=== PATIENT | female | born 1975 | race Caucasian/White ===

== ENCOUNTER 2017-05-28 20:44 | Emergency (ER) | payer MEDICAID ==
[2017-05-28] MEDS ORDERED: ONDANSETRON HCL/PF 2 MG/ML VIAL IV ONE (21:28)
[2017-05-28] MEDS ORDERED: ONDANSETRON HCL/PF 2 MG/ML VIAL ONE (21:37)
[2017-05-28] MEDS ORDERED: DIATRIZOATE MEGLUMINE, SODIUM 30 ML BTL ONE (21:37)
[2017-05-28 21:38] LABS: Hematocrit 40.2 % (37.0-47.0); Hemoglobin 13.7 gm/dL (12.5-16.0); Mean Cell Volume 86.8 fl (78-100); Mean Corpuscular Hemoglobin 29.6 pg (27-31); Mean Corpuscular Hgb Conc 34.1 g/dl (32-36); Mean Platelet Volume 10.9 fl (6.0-9.5); Neutrophil # 4.2 K/mm3 (1.3-6.0); Neutrophil % 54.6 % (42-75.0); Platelet Count 226 K/mm3 (150-450); Red Blood Count 4.63 M/mm3 (4.2-5.4); Red Cell Distribution Width 11.8 % (11.5-14.0); White Blood Count 7.6 K/mm3 (4.0-10.5)
[2017-05-28] MEDS ORDERED: DIATRIZOATE MEGLUMINE, SODIUM 30 ML BTL PO ONE (21:38)
[2017-05-28 21:57] LABS: Albumin * 3.7 gm/dl (3.4-5.0); Anion Gap 13.4 mmol/L (6.8-13.8); BUN/Creatinine Ratio 21.1 (9.0-21.6); Bilirubin, Total 0.4 mg/dL (0.0-1.1); Ca. Corrected For Albumin 9.2 mg/dL (8.4-10.2); Calcium * 9.3 mg/dL (7.9-10.9); Carbon Dioxide 28.4 mmol/L (24-32.6); Potassium 3.8 mmol/L (3.4-4.6); Total Protein 7.1 gm/dL (6.2-8.2)
[2017-05-28 22:21] LABS: Urine Bilirubin Negative (NEGATIVE); Urine Blood Negative /ul (NEGATIVE); Urine Ketone Negative (NEGATIVE); Urine Nitrite Negative (NEGATIVE); Urine Protein Negative (NEGATIVE); Urine Specific Gravity 1.025 SP.GR. (1.005-1.010); Urine Urobilinogen Normal (NORMAL)
[2017-05-28 22:31] LABS: Urine Appearance Clear; Urine Bacteria None Seen; Urine Color Yellow; Urine RBC None Seen /hpf (0-5); Urine WBC None Seen /hpf (0-5)
[2017-05-28 22:32] LABS: Urine Yeast Few - 1+
[2017-05-28] MEDS ORDERED: KETOROLAC TROMETHAMINE 30 MG/ML VIAL IV ONE (23:53)
[2017-05-28] MEDS ORDERED: KETOROLAC TROMETHAMINE 30 MG/ML VIAL ONE (23:54)
[2017-05-29] MEDS ORDERED: LORazepam 2 MG/ML DISP.SYRIN IV ONE (00:23)
[2017-05-29] MEDS ORDERED: LORazepam 2 MG/ML DISP.SYRIN ONE (00:26)
[2017-05-29] MEDS ORDERED: HYDROmorphone HCL 1 MG/ML DISP.SYRIN IV ONE (01:04)
[2017-05-29] MEDS ORDERED: HYDROmorphone HCL 1 MG/ML DISP.SYRIN ONE (01:07)
[2017-05-29] MEDS ORDERED: metroNIDAZOLE/SODIUM CHLORIDE 500 MG/100 ML BAG IV SCH (01:45)
[2017-05-29] MEDS ORDERED: CIPROFLOXACIN IN 5 % DEXTROSE 400 MG/200 ML BAG IV SCH (01:45)
[2017-05-29 03:55] VITALS: BP 117/69
--- NOTE | 2017-05-29 03:56 | ERNOTE ---
Abdominal HPI - General Chief Complaint: Abdominal Pain Source: patient Exam Limitations: no limitations - Immun/Allergies/Home Medications Immunizatons: IMMUNIZATION HX Immunizations Up to Date Yes History of Influenza Vaccine No Hx Pneumococcal Vaccination No Allergies/Adverse Reactions: Allergies iodine Allergy (Severe, Verified 05/28/17 21:07) Anaphylaxis povidone-iodine [From Betadine] Allergy (Severe, Verified 05/28/17 21:07) Anaphylaxis shellfish derived Allergy (Severe, Verified 05/28/17 21:07) Anaphylaxis soap [From Betadine] Allergy (Severe, Verified 05/28/17 21:07) Anaphylaxis Sulfa (Sulfonamide Antibiotics) Allergy (Mild, Verified 05/28/17 21:07) Hives sulfamethoxazole [From Bactrim] Allergy (Mild, Verified 05/28/17 21:07) Hives trimethoprim [From Bactrim] Allergy (Mild, Verified 05/28/17 21:07) Hives Home Medications: HOME MEDICATIONS Gemfibrozil 600 mg PO BID 01/14/14 [Last Taken Unknown] Lisinopril 10 mg PO DAILY 01/14/14 [Last Taken Unknown] Omeprazole 40 mg PO DAILY 01/14/14 [Last Taken Unknown] metFORMIN HCL [Metformin HCl] 1,000 mg PO BID 01/14/14 [Last Taken Unknown] Insulin Glargine,Hum.rec.anlog [Lantus] 45 units SC BID 10/05/15 [Last Taken Unknown] EPINEPHrine [Epipen 2-Alvaro] 0.3 mg IM ONCE PRN 11/28/15 [Last Taken Unknown] HYDROcodone/ACETAMINOPHEN [[place] 5-325] 1 - 2 tab PO Q6H PRN 05/28/17 [Last Taken Unknown] Ciprofloxacin HCl [Cipro] 500 mg PO BID #20 tablet 05/29/17 [Last Taken Unknown] HYDROcodone/ACETAMINOPHEN [[place] 5-325] 1 each PO TID PRN #12 tablet 05/29/17 [ Last Taken Unknown] metroNIDAZOLE [Flagyl] 500 mg PO Q8H #30 tablet 05/29/17 [Last Taken Unknown] - History of Present Illness Narrative: Here for severe abdominal pain which began at 7:30 tonight. Denies any vomiting however the patient has felt nauseated all day. Denies any diarrhea. Denies any fevers or chills. She complains of the abdominal pain feeling as if she is having abdominal spasms and contractions however she denies being Review of Systems - Review of Systems Constitutional: Present: no symptoms reported EYE: Present: no symptoms reported ENT: Present: no symptoms reported Respiratory: Present: no symptoms reported Cardiology: Present: no symptoms reported Gastrointestinal/Abdominal: Present: See HPI Genitourinary: Present: no symptoms reported - Patient's Past Medical History Patient History - Medical: Diabetes Type 2 Insulin Dependent, Fibromyalgia, GERD , Obesity, Other Patient History - Cardiac/Respiratory: No pertinent hx Patient History - Cancer: No Hx of Cancer Patient History - Surgical Procedures: Cholecystectomy, Colonoscopy, D & C, Tubal Ligation, T & A Patient History - Other: None LMP (females 10-50): 3 weeks - Social History Living Situations: home Abuse History: No History of abuse Psych History: No pertinent hx Smoking Status: Former smoker Alcohol Use: none Drug Use: none - Immunizations Immunizations Up to Date: Yes Hx Pneumococcal Vaccination: No History of Influenza Vaccine: No Physical Exam - Physical Exam General Appearance: Present: wd/wn, alert, no apparent distress Respiratory: Present: no respiratory distress, normal breath sounds, no accessory muscle use, chest nontender, lungs clear Gastrointestinal/Abdominal: Present: other - abdomen is distended and tense she is diffusely tender all over the abdomen there is no rebound and I did not palpate any masses. This is not an acute abdomen Extremity Exam: Present: normal inspection, normal range of motion Neurological Exam: Present: alert, oriented, normal mood/affect ED Progress - Results and Orders Patient's Lab Results:: I have reviewed the patient's lab results. - Vital Signs Patient's Vital Signs:: I have reviewed the patient's vital signs. Vital Signs: Vital Signs 05/28/17 05/28/17 05/29/17 21:02 22:13 00:06 Temperature 36.3 C L Pulse Rate 70 80 76 Respiratory 16 18 18 Rate Blood Pressure 134/87 138/72 154/80 O2 Sat by Pulse 96 97 98 Oximetry 05/29/17 05/29/17 05/29/17 01:12 01:44 02:07 Temperature Pulse Rate 76 76 58 L Respiratory 18 16 16 Rate Blood Pressure 144/66 128/87 144/90 O2 Sat by Pulse 98 96 94 Oximetry 05/29/17 05/29/17 05/29/17 02:37 03:14 03:31 Temperature Pulse Rate 60 57 L 58 L Respiratory 14 18 18 Rate Blood Pressure 135/81 143/80 128/80 O2 Sat by Pulse 95 96 97 Oximetry - CT/Ultrasound CT/Ultrasound Narrative: CT scan was read by Dr. Ramos as possible colitis - Progress/Reassessment Chief Complaint: Abdominal Pain Plan - Plan Plan: Patient's test results reveal that her white count is normal however CT scan indicates thickening of the bowel wall as read by Dr. Carter our radiologist. Patient will be treated for colitis she is to follow up with her primary care physician next week. Departure - Departure Clinical Impression: Colitis Disposition: Home self-care Condition: Good Instructions: Colitis Referrals: Mike Lora DO [Primary Care Provider] - Prescriptions: Ciprofloxacin HCl [Cipro] 500 mg PO BID #20 tablet HYDROcodone/ACETAMINOPHEN [[place] 5-325] 1 each PO TID PRN #12 tablet PRN Reason: Pain metroNIDAZOLE [Flagyl] 500 mg PO Q8H #30 tablet
== END 2017-05-29 03:54 | disposition home or self-care (01) ==
LOC: ER 20:44
DX: K52.9 Noninfective gastroenteritis and colitis, unspecified (principal); E11.9 Type 2 diabetes mellitus without complications; Z79.4 Long term (current) use of insulin; M79.7 Fibromyalgia; K21.9 Gastro-esophageal reflux disease without esophagitis
CPT/HCPCS: 36415; 74176; 80053; 81001; 85025; 96365; 96367; 96375; 99284; J2405